=== PATIENT | female | born 1945 | race Caucasian/White ===

== ENCOUNTER → 2017-02-12 | Outpatient (CLI) | payer MEDICARE, BC ==
[~2017-02-12] MED LIST: ADVAIR IH; ATACAND PO; ATACAND32 MG PO; CALCIUM1 CAP PO; CEPHALEXIN500 M1 PO; FLOMAX 0.40.4 MG/CAP PO; HCTZ12.5TAB PO; NAPROSYN375 MG PO; NEXIUM 20MG20 MG PO; NEXIUM PO; NORCO 325 MG-51 TAB PO; PREMARIN .3MG0.3 MG PO; PREMARIN0.625 MG PO; RT ADVAIR 128 DISKUS IH; SIMVISTATIN; SINGULAIR; SINGULAIR 110 MG/TAB PO; VITAMIN D 400400 IU PO; ZOCOR 20MG20 MG PO; ZOFRAN 4MG T4 MG/TAB PO
== END ==
LOC: MC.RAD 11:00
DX: Z12.31 Encounter for screening mammogram for malignant neoplasm of breast (principal)

== ENCOUNTER 2017-06-11 09:32 | Inpatient (IN) | payer MEDICARE, BC ==
[~2017-06-11] VITALS: Ht 152.4 cm; Wt 55.1 kg
[2017-06-11] VITALS (494 sets, daily range): BP systolic 114–134; BP diastolic 70–75; PULSE 65–71; TEMP 97.6–98.2; O2SAT 90–100
[2017-06-11 10:12] LABS: BASO # 0.1 (0.0-0.2); BASO % 0.5 % (0.0-2.0); EOS # 0.1 (0.0-0.7); EOS % 0.7 % (0-4.0); GRAN # 8.7 (1.4-6.5); GRAN % 72.3 % (42.2-75.2); HEMOGLOBIN 12.7 g/dl (12.5-16.0); LYMPH # 2.2 (1.2-3.4); LYMPH % 18.4 % (20.0-51.0); MEAN CELL VOLUME 93 fl (80.0-100.0); MEAN CORPUSCULAR HEMOGLOBIN 30 pg (27.0-31.0); MEAN CORPUSCULAR HGB CONC 32 g/dl (33.0-37.0); MEAN PLATELET VOLUME 10.7 fl (7.4-10.4); MONO # 0.9 (0.1-0.6); MONO % 7.4 % (1.7-9.3); PLATELET COUNT 251 K/mm3 (130-400); REDCELL DISTRIBUTION WIDTH-CV 13.3 % (11.5-14.5)
[2017-06-11 10:25] LABS: ALANINE AMINOTRANSFERASE 25 U/L (9-52); ALBUMIN 3.7 gm/dL (3.5-5.0); ALKALINE PHOSPHATASE 85 U/L (50-136); ANION GAP 8 mmol/L (7-16); AST,SGOT 45 U/L (15-37); BILIRUBIN,TOTAL 0.5 mg/dL (0.0-1.0); BLOOD UREA NITROGEN 22 mg/dL (7-17); CALCIUM 8.9 mg/dL (8.4-10.2); CARBON DIOXIDE 22 mmol/L (22-30); CHLORIDE 98 mmol/L (98-107); CREATININE, serum 0.69 mg/dL (0.52-1.25); GLUCOSE 125 mg/dL (74-106); LIPASE 175 U/L (23-300); POTASSIUM 4.1 mmol/L (3.4-5.0); SODIUM 128 mmol/L (137-145); TOTAL PROTEIN 6.7 gm/dL (6.4-8.2)
[2017-06-11 10:28] LABS: PARTIAL THROMBOPLASTIN TIME 25.7 SECONDS (26.0-37.0)
[2017-06-11 10:45] LABS: TROPONIN-I < 0.012 ng/mL (0.000-0.034)
[2017-06-11] MEDS ORDERED: HAWTHORN BERRIES PO (15:17)
[2017-06-11] MEDS ORDERED: AREDS EYE VITAMIN PO (15:22)
[2017-06-11] MEDS ORDERED: AMBIEN 5MG TABLE5 MG PO (17:36)
[2017-06-11] MEDS ORDERED: VITAMIN D 1001000 IU PO (17:39)
[2017-06-11] MEDS ORDERED: NATURE'S BLEND600 M2 PO (17:43)
[2017-06-11] MEDS ORDERED: VALIUM 5MG T5 MG/TAB PO (17:45)
[2017-06-11] MEDS ORDERED: BIOTIN5000 MCG PO (17:46)
[2017-06-11] MEDS ORDERED: ATACAND8 MG PO (17:47)
[2017-06-11] MEDS ORDERED: NATURAL MAGNES200 MG PO (17:48)
[2017-06-12] VITALS (260 sets, daily range): BP systolic 113–140; BP diastolic 59–80; PULSE 63–68; TEMP 97.6–97.9; O2SAT 93–100
[2017-06-12 06:35] LABS: BASO % 0.4 % (0.0-2.0); EOS # 0.1 (0.0-0.7); EOS % 1.6 % (0-4.0); GRAN # 4.6 (1.4-6.5); GRAN % 61.4 % (42.2-75.2); LYMPH # 2.1 (1.2-3.4); LYMPH % 27.4 % (20.0-51.0); MEAN CELL VOLUME 93 fl (80.0-100.0); MEAN CORPUSCULAR HGB CONC 32 g/dl (33.0-37.0); MEAN PLATELET VOLUME 10.7 fl (7.4-10.4); MONO # 0.7 (0.1-0.6); MONO % 8.8 % (1.7-9.3); PLATELET COUNT 172 K/mm3 (130-400); REDCELL DISTRIBUTION WIDTH-CV 13.2 % (11.5-14.5)
[2017-06-12 06:38] LABS: HEMATOCRIT 33.6 % (37.0-47.0); HEMOGLOBIN 10.6 g/dl (12.5-16.0); MEAN CORPUSCULAR HEMOGLOBIN 29 pg (27.0-31.0)
[2017-06-12 06:50] LABS: ALBUMIN 2.7 gm/dL (3.5-5.0); BILIRUBIN,TOTAL 0.3 mg/dL (0.0-1.0); CREATININE, serum 0.72 mg/dL (0.52-1.25); TOTAL PROTEIN 5.2 gm/dL (6.4-8.2)
[2017-06-12 07:06] LABS: CALCIUM 8.4 mg/dL (8.4-10.2); CHOLESTEROL RISK RATIO 2.3; POTASSIUM 3.7 mmol/L (3.4-5.0)
[2017-06-12] MEDS ORDERED: LIPITOR20 MG PO (11:59)
[2017-06-12] MEDS ORDERED: MULTAQ400 MG PO (11:59)
[2017-06-12] MEDS ORDERED: ELIQUIS 5MG PO (11:59)
== END 2017-06-12 14:34 | disposition home or self-care (01) | DRG 310 ==
LOC: COL.ER 09:32 → PEDS 11:13 → ICU 11:13 → PEDS 06-12 04:27
PROVIDERS: Emergency Medicine; Internal Medicine
DX: I48.0 Paroxysmal atrial fibrillation (principal); E78.5 Hyperlipidemia, unspecified; J45.909 Unspecified asthma, uncomplicated; I10 Essential (primary) hypertension; R94.31 Abnormal electrocardiogram [ECG] [EKG]
CPT/HCPCS: J0282; J1160; J1650; J7030

== ENCOUNTER 2017-08-28 20:09 | Emergency (ER) | payer MEDICARE, BC ==
[~2017-08-28] VITALS: Ht 154.9 cm; Wt 54.5 kg
[~2017-08-28 20:09] MED LIST changes: +AMBIEN 5MG TABLE5 MG PO; +AREDS EYE VITAMIN PO; +ATACAND8 MG PO; +BIOTIN5000 MCG PO; +ELIQUIS 5MG PO; +HAWTHORN BERRIES PO; +LIPITOR20 MG PO; +MULTAQ400 MG PO; +NATURAL MAGNES200 MG PO; +NATURE'S BLEND600 M2 PO; +VALIUM 5MG T5 MG/TAB PO; +VITAMIN D 1001000 IU PO
[2017-08-28 20:13] VITALS: TEMP 98
[2017-08-28 20:30] LABS: BASO # 0.1 (0.0-0.2); BASO % 0.4 % (0.0-2.0); EOS # 0.2 (0.0-0.7); EOS % 1.6 % (0-4.0); GRAN # 10.1 (1.4-6.5); GRAN % 68.1 % (42.2-75.2); HEMATOCRIT 42.2 % (37.0-47.0); HEMOGLOBIN 13.5 g/dl (12.5-16.0); LYMPH # 3.2 (1.2-3.4); LYMPH % 21.6 % (20.0-51.0); MEAN CELL VOLUME 91 fl (80.0-100.0); MEAN CORPUSCULAR HEMOGLOBIN 29 pg (27.0-31.0); MEAN CORPUSCULAR HGB CONC 32 g/dl (33.0-37.0); MONO # 1.2 (0.1-0.6); PLATELET COUNT 264 K/mm3 (130-400); RED BLOOD COUNT 4.66 M/mm3 (4.10-5.30); REDCELL DISTRIBUTION WIDTH-CV 13.2 % (11.5-14.5)
[2017-08-28 20:36] LABS: INR 1.5 (0.8-3.0); PROTHROMBIN TIME 17.4 SECONDS (9.7-12.8)
[2017-08-28 20:39] LABS: ALANINE AMINOTRANSFERASE 31 U/L (9-52); ALBUMIN 3.8 gm/dL (3.5-5.0); ALKALINE PHOSPHATASE 109 U/L (50-136); ANION GAP 10 mmol/L (7-16); AST,SGOT 22 U/L (15-37); BILIRUBIN,TOTAL 0.3 mg/dL (0.0-1.0); BLOOD UREA NITROGEN 23 mg/dL (7-17); CALCIUM 9.8 mg/dL (8.4-10.2); CARBON DIOXIDE 22 mmol/L (22-30); CHLORIDE 107 mmol/L (98-107); CREATINE KINASE 40 U/L (30-135); CREATININE, serum 0.95 mg/dL (0.52-1.25); GLUCOSE 148 mg/dL (74-106); PARTIAL THROMBOPLASTIN TIME 32.5 SECONDS (26.0-37.0); POTASSIUM 3.8 mmol/L (3.4-5.0); SODIUM 139 mmol/L (137-145); TOTAL PROTEIN 7.2 gm/dL (6.4-8.2)
[2017-08-28] MEDS ORDERED: TOPROL XL 25MG25 MG PO (20:39)
[2017-08-28 20:53] LABS: TROPONIN-I < 0.012 ng/mL (0.000-0.034)
[2017-08-28 22:37] VITALS: BP 101/69; PULSE 122
== END 2017-08-28 22:47 | disposition short-term general hospital (02) ==
LOC: COL.ER 20:09
PROVIDERS: Emergency Medicine
DX: I48.91 Unspecified atrial fibrillation (principal); I10 Essential (primary) hypertension; Z90.710 Acquired absence of both cervix and uterus; Z93.3 Colostomy status; Z79.01 Long term (current) use of anticoagulants; Z79.51 Long term (current) use of inhaled steroids
CPT/HCPCS: J7030; J7050

== ENCOUNTER 2017-09-13 03:21 | Inpatient (IN) | payer MEDICARE, BC ==
[2017-09-13] VITALS (259 sets, daily range): BP systolic 100–121; BP diastolic 62–84; PULSE 52–122; TEMP 97.6–98; O2SAT 85–100
[~2017-09-13] VITALS: Ht 154.9 cm; Wt 54.8 kg
[~2017-09-13 03:21] MED LIST changes: +TOPROL XL 25MG25 MG PO
[2017-09-13 03:55] LABS: BASO # 0.1 (0.0-0.2); BASO % 0.7 % (0.0-2.0); EOS # 0.1 (0.0-0.7); EOS % 0.9 % (0-4.0); GRAN # 6.8 (1.4-6.5); GRAN % 64.3 % (42.2-75.2); HEMATOCRIT 39.5 % (37.0-47.0); HEMOGLOBIN 13.2 g/dl (12.5-16.0); LYMPH # 2.8 (1.2-3.4); LYMPH % 26.7 % (20.0-51.0); MEAN CELL VOLUME 88 fl (80.0-100.0); MEAN CORPUSCULAR HEMOGLOBIN 29 pg (27.0-31.0); MEAN CORPUSCULAR HGB CONC 33 g/dl (33.0-37.0); MEAN PLATELET VOLUME 10.5 fl (7.4-10.4); MONO # 0.8 (0.1-0.6); MONO % 7.1 % (1.7-9.3); PLATELET COUNT 249 K/mm3 (130-400)
[2017-09-13 04:04] LABS: ALANINE AMINOTRANSFERASE 32 U/L (9-52); ALBUMIN 3.6 gm/dL (3.5-5.0); ALKALINE PHOSPHATASE 91 U/L (50-136); ANION GAP 11 mmol/L (7-16); AST,SGOT 23 U/L (15-37); BILIRUBIN,TOTAL 0.2 mg/dL (0.0-1.0); BLOOD UREA NITROGEN 26 mg/dL (7-17); CALCIUM 9.7 mg/dL (8.4-10.2); CARBON DIOXIDE 22 mmol/L (22-30); CHLORIDE 111 mmol/L (98-107); CREATININE, serum 0.76 mg/dL (0.52-1.25); GLUCOSE 115 mg/dL (74-106); PHOSPHOROUS 4.5 mg/dL (2.5-4.5); POTASSIUM 4.2 mmol/L (3.4-5.0); SODIUM 144 mmol/L (137-145); TOTAL PROTEIN 7.1 gm/dL (6.4-8.2)
[2017-09-13 04:12] LABS: INR 1.2 (0.8-3.0); PARTIAL THROMBOPLASTIN TIME 30.4 SECONDS (26.0-37.0); PROTHROMBIN TIME 14.5 SECONDS (9.7-12.8)
[2017-09-13 04:27] LABS: TROPONIN-I < 0.012 ng/mL (0.000-0.034)
[2017-09-13] MEDS ORDERED: TAMBOCOR50 MG PO ×2 (06:19→11:20)
[2017-09-13] MEDS ORDERED: ATACAND8 MG PO (06:32)
== END 2017-09-13 15:07 | disposition home or self-care (01) | DRG 310 ==
LOC: COL.ER 03:21 → ICU 05:02
PROVIDERS: Emergency Medicine
DX: I48.0 Paroxysmal atrial fibrillation (principal); I10 Essential (primary) hypertension; E78.5 Hyperlipidemia, unspecified; J45.909 Unspecified asthma, uncomplicated; K21.9 Gastro-esophageal reflux disease without esophagitis
CPT/HCPCS: 99223-AI; J7030

== ENCOUNTER 2017-11-07 07:33 | Outpatient (CLI) | payer MEDICARE, BC ==
[~2017-11-07] VITALS: Ht 155 cm; Wt 55.9 kg
[~2017-11-07 07:33] MED LIST changes: +TAMBOCOR50 MG PO
[2017-11-07] MEDS ORDERED: LIPITOR20 MG PO (07:56)
[2017-11-07] MEDS ORDERED: ELIQUIS 5MG PO (07:56)
[2017-11-07] MEDS ORDERED: RT ADVAIR 128 DISKUS IH (07:58)
[2017-11-07] MEDS ORDERED: OCUVITE1 TA1 PO (08:02)
[2017-11-07 08:22] VITALS: BP 133/78; PULSE 63; TEMP 97.4
[2017-11-07] MEDS ORDERED: CEPHALEXIN500 M1 PO (09:01)
[2017-11-07 09:33] VITALS: BP 159/88; PULSE 78; TEMP 97.3
== END 2017-11-07 09:41 | disposition home or self-care (01) ==
LOC: COL.CAR 07:33
DX: I48.0 Paroxysmal atrial fibrillation (principal); J45.909 Unspecified asthma, uncomplicated; I10 Essential (primary) hypertension; E78.5 Hyperlipidemia, unspecified; K21.9 Gastro-esophageal reflux disease without esophagitis; Z90.710 Acquired absence of both cervix and uterus; Z79.01 Long term (current) use of anticoagulants; Z79.51 Long term (current) use of inhaled steroids; Z82.49 Family history of ischemic heart disease and other diseases of the circulatory system

== ENCOUNTER → 2018-03-05 | Outpatient (CLI) | payer MEDICARE, BC ==
[~2018-03-05] MED LIST changes: +OCUVITE1 TA1 PO
== END ==
LOC: MC.RAD 09:34
DX: Z12.31 Encounter for screening mammogram for malignant neoplasm of breast (principal)

== ENCOUNTER 2018-09-23 09:30 | Outpatient (RCR) | payer MEDICARE, BC | END 2018-10-28 | disposition home or self-care (01) | LOC: WSPT | DX: M47.22 Other spondylosis with radiculopathy, cervical region (principal) ==

== ENCOUNTER → 2019-03-13 | Outpatient (CLI) | payer MEDICARE, BC | LOC: MC.RAD 11:06 | DX: Z12.31 Encounter for screening mammogram for malignant neoplasm of breast (principal) ==

== ENCOUNTER 2019-08-14 18:11 | Emergency (ER) | payer MEDICARE, BC ==
[~2019-08-14] VITALS: Ht 152.4 cm; Wt 55.9 kg
[2019-08-14 18:15] VITALS: BP 165/78; TEMP 97.5
[2019-08-14 19:30] VITALS: PULSE 65
== END 2019-08-14 19:30 | disposition home or self-care (01) ==
LOC: COL.ER 18:11
DX: S09.90XA Unspecified injury of head, initial encounter (principal); Z79.01 Long term (current) use of anticoagulants; Z79.51 Long term (current) use of inhaled steroids; W10.9XXA Fall (on) (from) unspecified stairs and steps, initial encounter; Y92.009 Unspecified place in unspecified non-institutional (private) residence as the place of occurrence of the external cause

== ENCOUNTER → 2020-03-14 | Outpatient (CLI) | payer MEDICARE, BC | LOC: MC.RAD 11:45 | DX: Z12.31 Encounter for screening mammogram for malignant neoplasm of breast (principal) ==

== ENCOUNTER → 2021-04-05 | Outpatient (CLI) | payer MEDICARE, BC | LOC: MC.RAD 10:59 | DX: Z12.31 Encounter for screening mammogram for malignant neoplasm of breast (principal) ==

== ENCOUNTER 2021-04-28 08:58 | Outpatient (RCR) | payer MEDICARE, BC | END 2021-06-09 | disposition home or self-care (01) | LOC: WSST | DX: R19.8 Other specified symptoms and signs involving the digestive system and abdomen (principal) ==

== ENCOUNTER → 2021-05-11 | Outpatient (CLI) | payer MEDICARE, BC | LOC: COL.RAD 09:14 | DX: R13.10 Dysphagia, unspecified (principal); R19.8 Other specified symptoms and signs involving the digestive system and abdomen ==

== ENCOUNTER → 2021-05-19 | Outpatient (CLI) | payer MEDICARE, BC | LOC: COL.RAD 14:02 | DX: Z01.812 Encounter for preprocedural laboratory examination (principal); N28.1 Cyst of kidney, acquired; Z98.890 Other specified postprocedural states | CPT/HCPCS: Q9967 ==

== ENCOUNTER 2021-10-13 13:29 | Emergency (ER) | payer MEDICARE, BC ==
[~2021-10-13] VITALS: Ht 152.4 cm; Wt 59.1 kg
[2021-10-13 13:41] VITALS: TEMP 98.5
[2021-10-13 13:59] LABS: BASO % 0.4 % (0.0-2.0); EOS % 0.2 % (0.0-4.0); GRAN # 5.8 K/mm3 (1.4-6.5); GRAN % 69.1 % (42.2-75.2); HEMATOCRIT 40.6 % (37.0-47.0); LYMPH # 1.6 K/mm3 (1.2-3.4); LYMPH % 19.2 % (20.0-51.0); MEAN CELL VOLUME 92 fl (80.0-100.0); MEAN CORPUSCULAR HEMOGLOBIN 30 pg (27-31); MEAN CORPUSCULAR HGB CONC 32 g/dl (33.0-37.0); MEAN PLATELET VOLUME 10.2 fl (7.4-10.4); MONO # 0.9 K/mm3 (0.1-0.6); MONO % 10.7 % (1.7-9.3); PLATELET COUNT 222 K/mm3 (130-400); RED BLOOD COUNT 4.41 M/mm3 (4.10-5.30); REDCELL DISTRIBUTION WIDTH-CV 13.8 % (11.5-14.5)
[2021-10-13 14:05] LABS: INR 1.9 (0.8-3.0); PROTHROMBIN TIME 21.7 SECONDS (9.7-12.8)
[2021-10-13 14:13] LABS: ALANINE AMINOTRANSFERASE 20 U/L (0-55); ALBUMIN 3.6 gm/dL (3.4-4.8); ALKALINE PHOSPHATASE 99 U/L (40-150); ANION GAP 12 mmol/L (7-16); AST,SGOT 21 U/L (5-34); BILIRUBIN,TOTAL 0.6 mg/dL (0.2-1.2); BLOOD UREA NITROGEN 17 mg/dL (10-20); CARBON DIOXIDE 19 mmol/L (23-31); CHLORIDE 109 mmol/L (98-107); CREATININE, serum 0.84 mg/dL (0.57-1.11); GLUCOSE 133 mg/dL (70-99); POTASSIUM 3.8 mmol/L (3.5-4.5); SODIUM 140 mmol/L (136-145); TOTAL PROTEIN 6.5 gm/dL (6.2-8.1)
[2021-10-13 14:47] LABS: TROPONIN-I < 0.010 ng/mL (0.00-0.033)
[2021-10-13 15:00] VITALS: BP 115/72; PULSE 61
== END 2021-10-13 15:20 | disposition home or self-care (01) ==
LOC: COL.ER 13:29
PROVIDERS: Physician Assistant
DX: I48.0 Paroxysmal atrial fibrillation (principal); Z79.01 Long term (current) use of anticoagulants; Z28.311 Partially vaccinated for COVID-19

== ENCOUNTER 2021-11-09 09:27 | Outpatient (CLI) | payer MEDICARE, BC ==
[2021-11-09] VITALS (8 sets, daily range): BP systolic 126–138; BP diastolic 64–82; PULSE 64–75
[~2021-11-09] VITALS: Ht 152.4 cm; Wt 57.2 kg
[2021-11-09] MEDS ORDERED: PRESERVISION1 SGL PO (10:02)
[2021-11-09] MEDS ORDERED: VALIUM 10MG10 MG/TAB PO (10:05)
--- NOTE | 2021-11-09 11:36 | NUR ---
SEE MERGE DOCUMENTATION FOR MEDICATION ADMINISTRATION AND INTRA/POST PROCEDURE SEDATION ASSESSMENTS.
[2021-11-09] MEDS ORDERED: CEPHALEXIN500 M1 PO (13:05)
== END 2021-11-09 13:42 | disposition home or self-care (01) ==
LOC: COL.CAR 09:27
DX: T82.111A Breakdown (mechanical) of cardiac pulse generator (battery), initial encounter (principal); I48.0 Paroxysmal atrial fibrillation; I49.3 Ventricular premature depolarization; I10 Essential (primary) hypertension; E78.2 Mixed hyperlipidemia; I35.1 Nonrheumatic aortic (valve) insufficiency; Z98.890 Other specified postprocedural states; Z79.01 Long term (current) use of anticoagulants
CPT/HCPCS: C1764; J2250; J3010

== ENCOUNTER → 2022-04-19 | Outpatient (CLI) | payer MEDICARE, BC ==
[~2022-04-19] MED LIST changes: +PRESERVISION1 SGL PO; +VALIUM 10MG10 MG/TAB PO
== END ==
LOC: MC.RAD 10:34
DX: Z12.31 Encounter for screening mammogram for malignant neoplasm of breast (principal)

== ENCOUNTER 2022-10-03 09:48 | Outpatient (CLI) | payer MEDICARE, BC ==
[~2022-10-03] VITALS: Ht 152.4 cm; Wt 55.2 kg
[2022-10-03 10:25] VITALS: BP 103/66; PULSE 65; TEMP 97.9
== END 2022-10-03 11:07 ==
LOC: EUO 09:48
DX: M81.0 Age-related osteoporosis without current pathological fracture (principal)
CPT/HCPCS: J0897

== ENCOUNTER 2023-02-23 10:17 | Emergency (ER) | payer MEDICARE, BC ==
[~2023-02-23] VITALS: Ht 152.4 cm; Wt 54.5 kg
[2023-02-23 10:35] LABS: COLLECTION METHOD CLEAN CATCH
[2023-02-23 10:43] LABS: MUCOUS Present (NOT PRESENT); SQUAMOUS EPITHELIAL 0-2 /hpf (0-10); URINE BACTERIA Rare /hpf (NONE SEEN); URINE RBC 0-2 /hpf (0-2)
[2023-02-23 10:45] LABS: PH 5.5 (5.0-8.5); URINE APPEARANCE Clear (CLEAR/HAZY); URINE BLOOD 1+ (NEGATIVE); URINE COLOR Colorless (YELLOW); URINE GLUCOSE Negative (NEGATIVE); URINE KETONE Negative (NEGATIVE); URINE NITRATE Negative (NEGATIVE); URINE PROTEIN(semi-quant) Negative (NEGATIVE); URINE UROBILINOGEN 0.2 E.U/dL (0.2-1.0)
[2023-02-23] MEDS ORDERED: CEPHALEXIN500 M1 PO (10:47)
[2023-02-23 10:54] LABS: BASO # 0.1 K/mm3 (0.0-0.2); BASO % 0.5 % (0.0-2.0); EOS # 0.1 K/mm3 (0.0-0.7); EOS % 0.6 % (0.0-4.0); GRAN # 7.2 K/mm3 (1.4-6.5); GRAN % 72.9 % (42.2-75.2); HEMATOCRIT 40.6 % (37.0-47.0); HEMOGLOBIN 12.7 g/dl (12.5-16.0); LYMPH # 1.8 K/mm3 (1.2-3.4); LYMPH % 17.7 % (20.0-51.0); MEAN CELL VOLUME 94 fl (80.0-100.0); MEAN CORPUSCULAR HEMOGLOBIN 29 pg (27-31); MEAN CORPUSCULAR HGB CONC 31 g/dl (33.0-37.0); MEAN PLATELET VOLUME 10.2 fl (7.4-10.4); MONO # 0.8 K/mm3 (0.1-0.6); PLATELET COUNT 215 K/mm3 (130-400); RED BLOOD COUNT 4.33 M/mm3 (4.10-5.30); REDCELL DISTRIBUTION WIDTH-CV 13.7 % (11.5-14.5)
[2023-02-23 11:09] LABS: ALBUMIN 3.7 gm/dL (3.4-4.8); BILIRUBIN,TOTAL 0.5 mg/dL (0.2-1.2); CALCIUM 9.1 mg/dL (8.4-10.2); CREATININE, serum 0.77 mg/dL (0.57-1.11); POTASSIUM 3.6 mmol/L (3.5-4.5); TOTAL PROTEIN 6.4 gm/dL (6.2-8.1)
[2023-02-23 11:32] VITALS: BP 167/77; PULSE 56; TEMP 97.6
== END 2023-02-23 11:41 | disposition home or self-care (01) ==
LOC: COL.ER 10:17
PROVIDERS: Emergency Medicine
DX: R31.9 Hematuria, unspecified (principal); I48.91 Unspecified atrial fibrillation; Z87.440 Personal history of urinary (tract) infections; Z87.442 Personal history of urinary calculi; Z79.01 Long term (current) use of anticoagulants

== ENCOUNTER → 2023-05-13 | Outpatient (CLI) | payer MEDICARE | LOC: MC.RAD 13:59 | DX: Z12.31 Encounter for screening mammogram for malignant neoplasm of breast (principal) ==